=== PATIENT | male | born 1955 | race Caucasian/White ===

== ENCOUNTER 2017-04-03 09:36 | Emergency (ER) | payer BC, OTHER ==
--- NOTE | 2017-04-03 10:16 | EDM.PDOC ---
ED HPI GENERAL MEDICAL PROBLEM - General Chief Complaint: General Stated Complaint: dizzy Time Seen by Provider: 04/03/17 09:47 Source of Information: Reports: Patient History Limitations: Reports: No Limitations - History of Present Illness INITIAL COMMENTS - FREE TEXT/NARRATIVE: 61 y.o.w.m with a h/o CAD, H/O [place] disease came to the ed due to sudden onset of dizziness with ataxia anable to walk, which improved as he arrived here in the ed. Pt was in his usual state of health as he arrived her in the ed. No N/V/D no focal weaknesses. BP 175/90 pulse 84 temp 36.8 Pulse ox 99% on RA RR 18 Onset: Today Onset Date: 04/03/17 Onset Time: 08:55 Duration: Minutes: Location: Reports: Generalized Quality: Reports: Other (dizzy) Severity: Mild Improves with: Reports: None Worsens with: Reports: None Context: Reports: Other (started at rest) Associated Symptoms: Reports: Other (ataxia) - Related Data Allergies Allergy/AdvReac Type Severity Reaction Status Date / Time acyclovir Allergy Cannot Verified 04/03/17 09:44 Remember Penicillins Allergy Airway Verified 04/03/17 09:44 Tightness Sulfa (Sulfonamide Allergy Itching Verified 04/03/17 09:44 Antibiotics) Home Meds: Home Meds Lisinopril [Lisinopril] 40 mg PO DAILY 04/03/17 [History] Metoprolol Succinate [Toprol XL 50mg] 50 mg PO DAILY 04/03/17 [History] amLODIPine Besylate [Amlodipine Besylate] 10 mg PO DAILY 04/03/17 [History] atorvaSTATin [Lipitor] 40 mg PO BEDTIME 04/03/17 [History] metFORMIN HCl [Metformin HCl] 850 mg PO BID 04/03/17 [History] Past Medical History HEENT History: Reports: Epistaxis, Impaired Vision Cardiovascular History: Reports: Bypass, High Cholesterol, Hypertension Respiratory History: Reports: Pneumonia, Recurrent, SOB, Other (See Below) Other Respiratory History: HHT Musculoskeletal History: Reports: Arthritis, Fracture Neurological History: Reports: CVA Endocrine/Metabolic History: Reports: Other (See Below) Other Endocrine/Metabolic History: pre-diabetic Oncologic (Cancer) History: Reports: Other (See Below) Other Oncologic History: pre-cancerous polyps - Past Surgical History HEENT Surgical History: Reports: Oral Surgery Social & Family History - Tobacco Use Smoking Status *Q: Former Smoker Used Tobacco, but Quit: Yes Month Tobacco Last Used: quit 2 years ago - Recreational Drug Use Recreational Drug Use: No ED ROS GENERAL - Review of Systems Review Of Systems: See Below Constitutional: Reports: No Symptoms HEENT: Reports: No Symptoms Respiratory: Reports: No Symptoms Cardiovascular: Reports: No Symptoms Endocrine: Reports: No Symptoms GI/Abdominal: Reports: No Symptoms : Reports: No Symptoms Musculoskeletal: Reports: No Symptoms Skin: Reports: No Symptoms Neurological: Reports: Dizziness (subsiding) Psychiatric: Reports: No Symptoms Hematologic/Lymphatic: Reports: No Symptoms Immunologic: Reports: No Symptoms ED EXAM, GENERAL - Physical Exam Exam: See Below Exam Limited By: No Limitations General Appearance: Alert, WD/WN, No Apparent Distress Eye Exam: Bilateral Eye: Normal Inspection Ears: Normal External Exam Ear Exam: Bilateral Ear: Auricle Normal Nose: Normal Inspection, Normal Mucosa Throat/Mouth: Normal Inspection, Normal Lips Head: Atraumatic, Normocephalic Neck: Normal Inspection, Supple, Non-Tender Respiratory/Chest: No Respiratory Distress, Lungs Clear, Normal Breath Sounds Cardiovascular: Normal Peripheral Pulses, Regular Rate, Rhythm, No Edema Peripheral Pulses: 2+: Brachial (R) GI/Abdominal: Normal Bowel Sounds, Soft, Non-Tender, No Organomegaly (Male) Exam: Deferred Rectal (Males) Exam: Deferred Back Exam: Normal Inspection, Full Range of Motion Extremities: Normal Inspection, Normal Range of Motion, Non-Tender, No Pedal Edema Neurological: Alert, Oriented, CN II-XII Intact, Normal Cognition, Normal Gait Psychiatric: Normal Affect, Normal Mood Skin Exam: Warm, Dry, Intact, Normal Color, No Rash Lymphatic: No Adenopathy EKG INTERPRETATION EKG Date: 04/03/17 Time: 10:05 Rhythm: NSR Rate (Beats/Min): 82 [place]: Normal P-Wave: Present QRS: Normal ST-T: Normal QT: Normal Comparison: NA - No Prior EKG Course - Vital Signs Text/Narrative:: 61 y.o.w.m with a h/o CAD, H/O [place] ren[place] disease came to the ed due to sudden onset of dizziness with ataxia anable to walk, which improved as he arrived here in the ed. Pt was in his usual state of health as he arrived her in the ed. No N/V/D no focal weaknesses. BP 175/90 pulse 84 temp 36.8 Pulse ox 99% on RA RR 18 PE; WNWD W M NAD, No focal weaknessm nl gait, EOM intact PEEL Nl FF/FN test nl Labs: CBC/BMP Nl UA nl, Imaging: CT head W/O contrast: NAD as per RAD Tx: none Reexam: Symptoms subsided. BP 161/76 pulse 80 on D/C to home 11.[address] Sheldon, Neurologist: [place]: No Tx; MRI brain can be done as outpatient Plan: D/C with instruction. MRI scheduled for this Wednesday Last Recorded V/S: Last Vital Signs Temp 36.8 C 04/03/17 09:47 Pulse 80 04/03/17 11:30 Resp 14 04/03/17 11:30 BP 161/75 H 04/03/17 11:30 Pulse Ox 96 04/03/17 11:30 - Orders/Labs/Meds Orders: Active Orders 24 hr Category Date Time Status Head wo Cont [CT] Stat Exams 04/03/17 10:04 Taken EKG 12 Lead [EK] Routine Ther 04/03/17 10:04 Ordered Labs: Laboratory Tests 04/03/17 04/03/17 04/03/17 Range/Units 10:24 10:24 10:24 WBC 7.3 (4.5-12.0) X10-3/uL RBC 5.04 (4.30-5.75) x10(6)uL Hgb 14.6 (11.5-15.5) g/dL Hct 44.1 (30.0-51.3) % MCV 87.6 (80-96) fL MCH 29.0 (27.7-33.6) pg MCHC 33.1 (32.2-35.4) g/dL RDW 14.4 (11.5-15.5) % Plt Count 207 (125-369) X10(3)uL MPV 8.4 (7.4-10.4) fL Add Manual Diff Yes Neutrophils % (Manual) 54 (46-82) % Band Neutrophils % 1 (0-6) % Lymphocytes % (Manual) 33 (13-37) % Monocytes % (Manual) 7 (4-12) % Eosinophils % (Manual) 5 (0-5) % PT 10.6 (8.7-11.1) INR 1.05 (0.89-1.13) Sodium 140 (135-145) mmol/L Potassium 4.5 (3.5-5.3) mmol/L Chloride 104 (100-110) mmol/L Carbon Dioxide 23 (21-32) mmol/L BUN 14 (7-18) mg/dL Creatinine 0.9 (0.70-1.30) mg/dL Est Cr Clr Drug Dosing 94.13 mL/min Estimated GFR (MDRD) > 60 (>60) BUN/Creatinine Ratio 15.6 (9-20) Glucose 110 (80-116) mg/dL Calcium 9.4 (8.6-10.2) mg/dL Troponin I (<0.017-0.056) ng/mL Urine Color (YELLOW) Urine Appearance (CLEAR) Urine pH (5.0-6.5) Ur Specific [place] (1.010-1.025) Urine Protein (NEGATIVE) mg/dL Urine Glucose (UA) (NEGATIVE) mg/dL Urine Ketones (NEGATIVE) mg/dL Urine Occult Blood (NEGATIVE) Urine Nitrite (NEGATIVE) Urine Bilirubin (NEGATIVE) Urine Urobilinogen (NEGATIVE) mg/dL Ur Leukocyte Esterase (NEGATIVE) Urine RBC (0) Urine WBC (0) Ur Squamous Epith Cells (NS,R,O) Urine Bacteria (NS) 04/03/17 04/03/17 Range/Units 10:24 10:50 WBC (4.5-12.0) X10-3/uL RBC (4.30-5.75) x10(6)uL Hgb (11.5-15.5) g/dL Hct (30.0-51.3) % MCV (80-96) fL MCH (27.7-33.6) pg MCHC (32.2-35.4) g/dL RDW (11.5-15.5) % Plt Count (125-369) X10(3)uL MPV (7.4-10.4) fL Add Manual Diff Neutrophils % (Manual) (46-82) % Band Neutrophils % (0-6) % Lymphocytes % (Manual) (13-37) % Monocytes % (Manual) (4-12) % Eosinophils % (Manual) (0-5) % PT (8.7-11.1) INR (0.89-1.13) Sodium (135-145) mmol/L Potassium (3.5-5.3) mmol/L Chloride (100-110) mmol/L Carbon Dioxide (21-32) mmol/L BUN (7-18) mg/dL Creatinine (0.70-1.30) mg/dL Est Cr Clr Drug Dosing mL/min Estimated GFR (MDRD) (>60) BUN/Creatinine Ratio (9-20) Glucose (80-116) mg/dL Calcium (8.6-10.2) mg/dL Troponin I < 0.017 L (<0.017-0.056) ng/mL Urine Color Yellow (YELLOW) Urine Appearance Clear (CLEAR) Urine pH 5.0 (5.0-6.5) Ur Specific [place] 1.010 (1.010-1.025) Urine Protein Negative (NEGATIVE) mg/dL Urine Glucose (UA) Normal (NEGATIVE) mg/dL Urine Ketones Negative (NEGATIVE) mg/dL Urine Occult Blood Negative (NEGATIVE) Urine Nitrite Negative (NEGATIVE) Urine Bilirubin Negative (NEGATIVE) Urine Urobilinogen Normal (NEGATIVE) mg/dL Ur Leukocyte Esterase Negative (NEGATIVE) Urine RBC Not seen (0) Urine WBC Not seen (0) Ur Squamous Epith Cells Not seen (NS,R,O) Urine Bacteria Rare H (NS) Departure - Departure Time of Disposition: 11:23 Disposition: Home, Self-Care 01 Condition: Good Clinical Impression: TIA (transient ischemic attack) Qualifiers: Transient cerebral ischemia type: unspecified Qualified Code(s): G45.9 - Transient cerebral ischemic attack, unspecified - Discharge Information Instructions: Transient Ischemic Attack, [id number] Referrals: Toni Vaughan MD [Primary Care Provider] - Forms: ED Department Discharge Additional Instructions: Please cont your current meds, MRI this Wednesday, please f/u, please come back if your symptoms get worse acutely - My Orders Last 24 Hours: My Active Orders 04/03/17 10:04 Head wo Cont [CT] Stat EKG 12 Lead [EK] Routine - Assessment/Plan Last 24 Hours: My Active Orders 04/03/17 10:04 Head wo Cont [CT] Stat EKG 12 Lead [EK] Routine
[2017-04-03 11:31] VITALS: BP 161/75
== END 2017-04-03 11:31 | disposition home or self-care (01) ==
LOC: FB.ED 09:36
DX: G45.9 Transient cerebral ischemic attack, unspecified (principal); I10 Essential (primary) hypertension; E78.00 Pure hypercholesterolemia, unspecified; Z88.0 Allergy status to penicillin; Z88.2 Allergy status to sulfonamides; Z88.8 Allergy status to other drugs, medicaments and biological substances; Z79.899 Other long term (current) drug therapy; Z87.891 Personal history of nicotine dependence
CPT/HCPCS: 36415; 70450; 80048; 81001; 84484; 85025; 85610; 93005; 99284

== ENCOUNTER 2018-11-09 09:52 | Emergency (ER) | payer OTHER ==
[2018-11-09] MEDS ORDERED: Sodium Chloride 0.9% 1,000 ML IV SCH (10:45)
[2018-11-09] MEDS ORDERED: Sodium Chloride 0.9% 10 ML Syringe FLUSH PRN (10:45)
[2018-11-09] MEDS ORDERED: Metoprolol Succinate 50 MG Tab.ER PO ONE (10:46)
--- NOTE | 2018-11-09 10:52 | EDM.PDOC ---
ED HPI GENERAL MEDICAL PROBLEM - General Chief Complaint: Cardiovascular Problem Stated Complaint: HEART BEATING REALLY FAST Time Seen by Provider: 11/09/18 10:30 Source of Information: Reports: Patient, Old Records History Limitations: Reports: No Limitations - History of Present Illness INITIAL COMMENTS - FREE TEXT/NARRATIVE: Pacheco comes into [facility] ED with a transient hx of palpitations this am. He reported spontaneous onset of rapid heart rate to 130's, palpitations and some lt headiness. Sxs lasted just a minute or two and then subsided. There was no LOC, visual disturbance, weakness or loss of sensation, chest pain or SOB. He has a PMH of HBP and did taken am meds including Amlodipine, Metoprolol, and Lisinopril. He cannot take ASA because of a PMH of Amber Ros[place]. He is currently asx, but feels he may be dehydrated. He is a professional athletic instructor. - Related Data Allergies Allergy/AdvReac Type Severity Reaction Status Date / Time acyclovir Allergy Cannot Verified 04/03/17 09:44 Remember Penicillins Allergy Airway Verified 04/03/17 09:44 Tightness Sulfa (Sulfonamide Allergy Itching Verified 04/03/17 09:44 Antibiotics) Home Meds: Home Meds Lisinopril 40 mg PO DAILY 04/03/17 [History] Metoprolol Succinate [Toprol XL 50mg] 50 mg PO DAILY 04/03/17 [History] amLODIPine Besylate [Amlodipine Besylate] 10 mg PO BEDTIME 04/03/17 [History] atorvaSTATin [Lipitor] 40 mg PO BEDTIME 04/03/17 [History] metFORMIN HCl [Metformin HCl] 850 mg PO BID 04/03/17 [History] Cetirizine HCl [Zyrtec] 10 mg PO DAILY 11/09/18 [History] Past Medical History HEENT History: Reports: Epistaxis, Impaired Vision Cardiovascular History: Reports: Bypass, High Cholesterol, Hypertension Respiratory History: Reports: Pneumonia, Recurrent, SOB, Other (See Below) Other Respiratory History: HHT Musculoskeletal History: Reports: Arthritis, Fracture Neurological History: Reports: CVA Endocrine/Metabolic History: Reports: Other (See Below) Other Endocrine/Metabolic History: pre-diabetic Oncologic (Cancer) History: Reports: Other (See Below) Other Oncologic History: pre-cancerous polyps - Past Surgical History HEENT Surgical History: Reports: Oral Surgery ED ROS GENERAL - Review of Systems Review Of Systems: See Below Constitutional: Reports: No Symptoms HEENT: Reports: No Symptoms Respiratory: Reports: No Symptoms Cardiovascular: Reports: Blood Pressure Problem, Palpitations Endocrine: Reports: No Symptoms GI/Abdominal: Reports: No Symptoms : Reports: No Symptoms Musculoskeletal: Reports: No Symptoms Skin: Reports: No Symptoms Neurological: Reports: No Symptoms Psychiatric: Reports: No Symptoms Hematologic/Lymphatic: Reports: No Symptoms ED EXAM, GENERAL - Physical Exam Exam: See Below Exam Limited By: No Limitations General Appearance: Alert, WD/WN, No Apparent Distress, Anxious, Obese Eye Exam: Bilateral Eye: EOMI, Normal Inspection, PERRL Ears: Normal External Exam Nose: Normal Inspection Throat/Mouth: Normal Inspection Head: Normocephalic Neck: Normal Inspection, Supple, Non-Tender Respiratory/Chest: Lungs Clear, Normal Breath Sounds, Chest Non-Tender Cardiovascular: Regular Rate, Rhythm, No Murmur GI/Abdominal: Normal Bowel Sounds, Soft, Non-Tender, No Organomegaly, No Distention, No Mass (Male) Exam: Deferred Rectal (Males) Exam: Deferred Back Exam: Normal Inspection Extremities: Normal Inspection Neurological: Alert, Oriented, CN II-XII Intact, Normal Cognition, Normal Gait, No Motor/Sensory Deficits Psychiatric: Normal Affect, Normal Mood Skin Exam: Warm, Dry, Intact, Normal Color, No Rash Lymphatic: No Adenopathy Course - Vital Signs Text/Narrative:: Pacheco remained asx at the ED pending results of ekg and screening lab work. The ekg was NSR with nonspecific changes but no acute injury. The CBC and CMP were baseline, Troponin I <0.017, d-dimer mildly elevated 0.78, TSH normal for age. He was administered NS 1L over 2 hours, and Metoprolol 50 mg po. Current VS BP 154/75, VR 71 and regular. The UA was baseline. Last Recorded V/S: Last Vital Signs Temp 36.6 C 11/09/18 09:52 Pulse 86 11/09/18 11:02 Resp 18 11/09/18 09:52 BP 181/93 H 11/09/18 11:02 Pulse Ox 98 11/09/18 09:52 - Orders/Labs/Meds Orders: Active Orders 24 hr Category Date Time Status EKG Documentation Completion [RC] ASDIRECTED Care 11/09/18 10:44 Active Chest 1V Frontal [CR] Stat Exams 11/09/18 10:52 Taken Sodium Chloride 0.9% [Normal Saline] 1,000 ml Med 11/09/18 10:45 Active IV ASDIRECTED Sodium Chloride 0.9% [Saline Flush] Med 11/09/18 10:45 Active 10 ml FLUSH ASDIRECTED PRN Peripheral IV Insertion Adult [OM.PC] Routine Oth 11/09/18 10:45 Ordered EKG 12 Lead [EK] Routine Ther 11/09/18 10:44 Ordered Medication Orders Sodium Chloride (Normal Saline) 1,000 mls @ 500 mls/hr IV ASDIRECTED LANI Last Admin: 11/09/18 11:00 Dose: 500 mls/hr Sodium Chloride (Saline Flush) 10 ml FLUSH ASDIRECTED PRN PRN Reason: Keep Vein Open Last Admin: 11/09/18 10:30 Dose: 10 ml Labs: Laboratory Tests 11/09/18 11/09/18 11/09/18 Range/Units 10:10 10:10 10:10 WBC 8.5 (4.5-12.0) X10-3/uL RBC 5.11 (4.30-5.75) x10(6)uL Hgb 14.2 (13.5-17.8) g/dL Hct 45.2 (30.0-51.3) % MCV 88.5 (80-96) fL MCH 27.9 (27.7-33.6) pg MCHC 31.5 L (32.2-35.4) g/dL RDW 14.3 (11.5-15.5) % Plt Count 223 (125-369) X10(3)uL MPV 9.2 (7.4-10.4) fL Neut % (Auto) 51.6 (46-82) % Lymph % (Auto) 35.0 (13-37) % [place] % (Auto) 8.6 (4-12) % Eos % (Auto) 3 (1.0-5.0) % Baso % (Auto) 2 (0-2) % Neut # (Auto) 4.3 (1.6-8.3) # Lymph # (Auto) 3.0 (0.6-5.0) # [place] # (Auto) 0.7 (0.0-1.3) # Eos # (Auto) 0.3 (0.0-0.8) # Baso # (Auto) 0.2 (0.0-0.2) # D-Dimer, Quantitative (0.0-0.59) mg/LFEU Sodium 139 (135-145) mmol/L Potassium 4.5 (3.5-5.3) mmol/L Chloride 102 (100-110) mmol/L Carbon Dioxide 26 (21-32) mmol/L BUN 17 (7-18) mg/dL Creatinine 0.8 (0.70-1.30) mg/dL Est Cr Clr Drug Dosing TNP Estimated GFR (MDRD) > 60 (>60) BUN/Creatinine Ratio 21.3 H (9-20) Glucose 109 (80-116) mg/dL Calcium 9.3 (8.6-10.2) mg/dL Total Bilirubin 0.5 (0.1-1.3) mg/dL AST 26 H (5-25) IU/L ALT 37 H (12-36) U/L Alkaline Phosphatase 89 (56-112) IU/L Troponin I < 0.017 L (<0.017-0.056) ng/mL Total Protein 7.7 (6.0-8.0) g/dL Albumin 4.0 (3.2-4.6) g/dL Globulin 3.7 g/dL Albumin/Globulin Ratio 1.1 TSH, Ultra Sensitive 0.99 (0.36-3.74) IU/mL Urine Color (YELLOW) Urine Appearance (CLEAR) Urine pH (5.0-6.5) Ur Specific [place] (1.010-1.025) Urine Protein (NEGATIVE) mg/dL Urine Glucose (UA) (NORMAL) mg/dL Urine Ketones (NEGATIVE) mg/dL Urine Occult Blood (NEGATIVE) Urine Nitrite (NEGATIVE) Urine Bilirubin (NEGATIVE) Urine Urobilinogen (NEGATIVE) mg/dL Ur Leukocyte Esterase (NEGATIVE) Urine WBC (0-5) Ur Squamous Epith Cells (NS,R,O) Urine Bacteria (NS) 11/09/18 11/09/18 Range/Units 10:10 11:20 WBC (4.5-12.0) X10-3/uL RBC (4.30-5.75) x10(6)uL Hgb (13.5-17.8) g/dL Hct (30.0-51.3) % MCV (80-96) fL MCH (27.7-33.6) pg MCHC (32.2-35.4) g/dL RDW (11.5-15.5) % Plt Count (125-369) X10(3)uL MPV (7.4-10.4) fL Neut % (Auto) (46-82) % Lymph % (Auto) (13-37) % [place] % (Auto) (4-12) % Eos % (Auto) (1.0-5.0) % Baso % (Auto) (0-2) % Neut # (Auto) (1.6-8.3) # Lymph # (Auto) (0.6-5.0) # [place] # (Auto) (0.0-1.3) # Eos # (Auto) (0.0-0.8) # Baso # (Auto) (0.0-0.2) # D-Dimer, Quantitative 0.78 H (0.0-0.59) mg/LFEU Sodium (135-145) mmol/L Potassium (3.5-5.3) mmol/L Chloride (100-110) mmol/L Carbon Dioxide (21-32) mmol/L BUN (7-18) mg/dL Creatinine (0.70-1.30) mg/dL Est Cr Clr Drug Dosing Estimated GFR (MDRD) (>60) BUN/Creatinine Ratio (9-20) Glucose (80-116) mg/dL Calcium (8.6-10.2) mg/dL Total Bilirubin (0.1-1.3) mg/dL AST (5-25) IU/L ALT (12-36) U/L Alkaline Phosphatase (56-112) IU/L Troponin I (<0.017-0.056) ng/mL Total Protein (6.0-8.0) g/dL Albumin (3.2-4.6) g/dL Globulin g/dL Albumin/Globulin Ratio TSH, Ultra Sensitive (0.36-3.74) IU/mL Urine Color Yellow (YELLOW) Urine Appearance Clear (CLEAR) Urine pH 7.0 H (5.0-6.5) Ur Specific [place] 1.010 (1.010-1.025) Urine Protein Negative (NEGATIVE) mg/dL Urine Glucose (UA) Normal (NORMAL) mg/dL Urine Ketones Negative (NEGATIVE) mg/dL Urine Occult Blood Negative (NEGATIVE) Urine Nitrite Negative (NEGATIVE) Urine Bilirubin Negative (NEGATIVE) Urine Urobilinogen Normal (NEGATIVE) mg/dL Ur Leukocyte Esterase Negative (NEGATIVE) Urine WBC 0-5 (0-5) Ur Squamous Epith Cells Few H (NS,R,O) Urine Bacteria Few H (NS) Meds: Medications Generic Name Dose Route Start Last Admin Trade Name Freq PRN Reason Stop Dose Admin Sodium Chloride 1,000 mls @ 500 mls/hr 11/09/18 10:45 11/09/18 11:00 Normal Saline IV 500 mls/hr ASDIRECTED LANI Administration Sodium Chloride 10 ml 11/09/18 10:45 11/09/18 10:30 Saline Flush FLUSH 10 ml ASDIRECTED PRN Administration Keep Vein Open Discontinued Medications Generic Name Dose Route Start Last Admin Trade Name Freq PRN Reason Stop Dose Admin Aspirin 324 mg 11/09/18 11:02 11/09/18 10:15 Aspirin PO 11/09/18 11:03 324 mg ONETIME ONE Administration Metoprolol Succinate 50 mg 11/09/18 10:46 11/09/18 11:02 Toprol Xl PO 11/09/18 10:47 50 mg ONETIME ONE Administration Departure - Departure Time of Disposition: 13:00 Disposition: Home, Self-Care 01 Condition: Good Clinical Impression: Palpitations Hypertension Qualifiers: Hypertension type: essential hypertension Qualified Code(s): I10 - Essential ( primary) hypertension Referrals: PCP,None [Ordering Only Provider] - Forms: ED Department Discharge - Problem List & Annotations (1) Hypertension SNOMED Code(s): 90256452 Code(s): I10 - ESSENTIAL (PRIMARY) HYPERTENSION Status: Acute Current Visit: Yes Annotation/Comment:: Increase Metoprolol 50 mg to bid, monitor BP and VR 2 or 3 times daily. Qualifiers: Hypertension type: essential hypertension Qualified Code(s): I10 - Essential (primary) hypertension (2) Palpitations SNOMED Code(s): 18657002 Code(s): R00.2 - PALPITATIONS Status: Acute Current Visit: Yes Annotation/Comment:: Monitor BP and VR 2 or 3 times daily, and no driving until tomorrow. - Problem List Review Problem List Initiated/Reviewed/Updated: Yes - My Orders Last 24 Hours: My Active Orders 11/09/18 10:44 EKG Documentation Completion [RC] ASDIRECTED EKG 12 Lead [EK] Routine 11/09/18 10:45 Sodium Chloride 0.9% [Normal Saline] 1,000 ml IV ASDIRECTED Sodium Chloride 0.9% [Saline Flush] 10 ml FLUSH ASDIRECTED PRN Peripheral IV Insertion Adult [OM.PC] Routine 11/09/18 10:52 Chest 1V Frontal [CR] Stat - Assessment/Plan Last 24 Hours: My Active Orders 11/09/18 10:44 EKG Documentation Completion [RC] ASDIRECTED EKG 12 Lead [EK] Routine 11/09/18 10:45 Sodium Chloride 0.9% [Normal Saline] 1,000 ml IV ASDIRECTED Sodium Chloride 0.9% [Saline Flush] 10 ml FLUSH ASDIRECTED PRN Peripheral IV Insertion Adult [OM.PC] Routine 11/09/18 10:52 Chest 1V Frontal [CR] Stat Plan: Follow up with PCP next week.
[2018-11-09] MEDS ORDERED: Aspirin 81 MG Tab.Chew PO ONE (11:02)
--- NOTE | 2018-11-09 13:22 | CR ---
INDICATION: Palpitations, history of [place]ers disease. CHEST: Portable AP upright view of the chest, 11/09/18, revealed what appeared to be multiple coils, compatible with a percutaneous postsurgical ablation at the right lung base. Overlying EKG leads are noted. Median sternotomy is noted. The heart appeared prominent but not grossly enlarged. It may be slightly enlarged, however. The aorta is minimally tortuous. A definite active infiltrate or effusion was not identified. No definite evidence of CHF was seen. IMPRESSION: No acute process. MTDD
[2018-11-09 15:52] VITALS: PULSE 68
[2018-11-09 15:54] VITALS: BP 152/70
== END 2018-11-09 13:11 | disposition home or self-care (01) ==
LOC: FB.ED 09:52
DX: R00.2 Palpitations (principal); I10 Essential (primary) hypertension; Z95.1 Presence of aortocoronary bypass graft; Z86.73 Personal history of transient ischemic attack (TIA), and cerebral infarction without residual deficits; Z79.899 Other long term (current) drug therapy; Z88.0 Allergy status to penicillin; Z88.2 Allergy status to sulfonamides; Z88.8 Allergy status to other drugs, medicaments and biological substances
CPT/HCPCS: 36415; 71045; 80053; 81001; 84443; 84484; 85025; 85379; 93005; 96360; 96361; 99285; A9270; J7030

== ENCOUNTER 2023-09-28 12:45 | Emergency (ER) | payer MEDICARE, BC ==
[2023-09-28 13:15] LABS: HEMOGLOBIN 14.3 g/dL (12.9-17.7); MEAN CORPUSCULAR HEMOGLOBIN 30.9 pg (27.0-33.3); MEAN CORPUSCULAR HGB CONC 33.3 g/dL (28.7-35.3); MEAN CORPUSCULAR VOLUME 92.7 fL (80.8-98.7); RED BLOOD CELL COUNT 4.63 x10(6)uL (3.90-5.90); RED CELL DISTRIBUTION WIDTH 14.2 % (12.4-15.0); WHITE BLOOD CELL COUNT,WBC 7.3 x10-3/uL (3.2-10.1)
[2023-09-28] MEDS ORDERED: Sodium Chloride 0.9% 10 ML Syringe FLUSH PRN (13:20)
[2023-09-28 13:21] LABS: BLOOD UREA NITROGEN,BUN 12 mg/dL (7-18); CALCIUM 8.6 mg/dL (8.6-10.2); CARBON DIOXIDE,CO2 27 mmol/L (21-32); CHLORIDE,CL 103 mmol/L (100-110); ESTIMATED GFR 84 mL/min (>60); GLUCOSE RANDOM 165 mg/dL (80-116); POTASSIUM,K 3.9 mmol/L (3.5-5.3); SODIUM,NA 138 mmol/L (135-145)
[2023-09-28 13:33] LABS: ALANINE AMINOTRANSFERASE,ALT 46 U/L (12-36); ALBUMIN 3.6 g/dL (3.2-4.6); ALKALINE PHOSPHATASE 82 IU/L (56-112); ASPARTATE AMNIOTRANSFERASE,AST 24 IU/L (5-25); BILIRUBIN TOTAL 0.5 mg/dL (0.1-1.3); MAGNESIUM 1.5 mg/dL (1.8-2.5); PROTEIN TOTAL,TP 7.1 g/dL (6.0-8.0)
[2023-09-28] MEDS: Sodium Chloride 0.9% 1,000 ML IV SCH (14:17)
[2023-09-28] MEDS: Iopamidol 755 Mg/ML 100 ML Bottle IV SCH (14:42)
[2023-09-28 14:54] LABS: BILIRUBIN,URINE NEGATIVE (NEGATIVE); GLUCOSE,URINE NORMAL (NORMAL); KETONES,URINE NEGATIVE (NEGATIVE); LEUKOCYTE ESTERASE,URINE NEGATIVE (NEGATIVE); NITRITE,URINE NEGATIVE (NEGATIVE); OCCULT BLOOD,URINE NEGATIVE (NEGATIVE); PROTEIN,URINE NEGATIVE (NEGATIVE); UROBILINOGEN,URINE NORMAL (NEGATIVE)
[2023-09-28 15:07] LABS: APPEARANCE,URINE CLEAR (CLEAR); BACTERIA,URINE RARE (NS); COLOR,URINE YELLOW (YELLOW); RBC,URINE NOT SEEN (0-5); SQUAMOUS EPITHELIAL CELLS,UR RARE (NS,R,O); WBC,URINE 0-5 (0-5)
[2023-09-28 15:47] VITALS: BP 141/65; PULSE 69
== END 2023-09-28 15:47 | disposition home or self-care (01) ==
LOC: FB.ED 12:45
DX: E86.0 Dehydration (principal); R55 Syncope and collapse; I10 Essential (primary) hypertension; I25.10 Atherosclerotic heart disease of native coronary artery without angina pectoris; E78.00 Pure hypercholesterolemia, unspecified; Z79.899 Other long term (current) drug therapy; Z79.84 Long term (current) use of oral hypoglycemic drugs; Z88.2 Allergy status to sulfonamides; Z88.0 Allergy status to penicillin; Z88.3 Allergy status to other anti-infective agents
CPT/HCPCS: 36415; 70496; 70498; 80053; 81001; 83735; 84484; 85027; 85379; 93005; 93010; 96360; 96361; 99284; J7030; Q9967